=== PATIENT | female | born 1950 | race Caucasian/White ===

== ENCOUNTER 2019-07-12 15:54 | Inpatient (IN) | payer MEDICARE ==
[~2019-07-12] VITALS: Ht 160 cm; Wt 80.7 kg
[2019-07-12] MEDS ORDERED: ONDA8TAB9 PO (16:09)
[2019-07-12] MEDS ORDERED: HYDR25TA6 PO (16:09)
[2019-07-12] MEDS ORDERED: PANT40TA5 PO (16:09)
[2019-07-12] MEDS ORDERED: POTA20TA6 PO (16:09)
[2019-07-12] MEDS ORDERED: LEVO75TA5 PO (16:09)
[2019-07-12] MEDS ORDERED: CYCL-259 PO (16:09)
--- NOTE | 2019-07-12 16:15 | NUR ---
THIS IS A 69 YO F BIB EMS FROM [facility] W/ C/O BLE WEAKNESS X10 DAYS. PT REPORTS NOT BEING ABLE TO WALK ANYMORE. PT REPORTS HER WHOLE BODY FEELS LIKE ITS TINGLING. DENIES CP/SOB/COUGH/RECENT TRAVEL. PT IS CONNECTED TO ALL MONITORING. HYPERTENSIVE, OTHER VS WDL. PT REPORTS NOT TAKING HTN MEDS TODAY. CALL LIGHT IN REACH, SIDE RAILS UP X2. PIV [employer]. MED REC DONE.
--- NOTE | 2019-07-12 16:17 | NUR ---
LAB IN ROOM.
[2019-07-12 16:45] LABS: BASOPHILS # (AUTO) 0.04 x10^3/uL (0-0.1); BASOPHILS % (AUTO) 1 % (0-1); EOSINOPHILS # (AUTO) 0.07 x10^3/uL (0-0.4); EOSINOPHILS % (AUTO) 1 % (1-7); LYMPHOCYTES # (AUTO) 1.57 x10^3/uL (1-3.4); LYMPHOCYTES % (AUTO) 21 % (22-44); MD NO; MEAN CORPUSCULAR HEMOGLOBIN 32.1 pg (27.0-34.8); MEAN CORPUSCULAR HGB CONC 33.1 g/dL (32.4-35.8); MEAN CORPUSCULAR VOLUME 97.2 fL (80-100); MEAN PLATELET VOLUME 8.4 fL (7.4-10.4); MONOCYTES # (AUTO) 0.68 x10^3/uL (0.2-0.8); MONOCYTES % (AUTO) 9 % (2-9); NEUTROPHILS % (AUTO) 69 % (42-75); PLATELET COUNT 243 x10^3/uL (130-400); RED BLOOD COUNT 3.92 x10^6/uL (3.82-5.3); RED CELL DISTRIBUTION WIDTH 15.8 % (9.6-15.2)
[2019-07-12 16:56] LABS: ALANINE AMINOTRANSFERASE 24 U/L (12-78); ALBUMIN 2.4 g/dL (3.4-5.0); ANION GAP 9 mmol/L (5-15); CALCIUM 8.2 mg/dL (8.5-10.1); CHLORIDE 109 mmol/L (98-107); CREATININE 0.89 mg/dL (0.55-1.02)
[2019-07-12] MEDS ORDERED: LIDOCAINE-MPF 1%, 5ML ONE (17:01)
[2019-07-12 17:03] LABS: ALKALINE PHOSPHATASE 129 U/L (45-117); BILIRUBIN,TOTAL 0.4 mg/dL (0.2-1.0); TOTAL PROTEIN 6.4 g/dL (6.4-8.2)
--- NOTE | 2019-07-12 17:06 | NUR ---
PT RESTING ON [employer] W/ CALL LIGHT IN REACH. RESP EVEN AND UNLABORED. NADN. PT SET UP FOR LP.
[2019-07-12 17:24] LABS: HCT (SEDRATE) 38.1 % (34.6-47.8)
--- NOTE | 2019-07-12 17:50 | NUR ---
LP DONE BY KATERINE ALANIS. PT TOLERATED WELL. NOW RESTING ON GURNEY LAYING ON LEFT SIDE. CALL LIGHT IN REACH.
[2019-07-12] MEDS ORDERED: MAGNESIUM SULFATE PMX 4GM/100M 100 ML IV ONE (18:00)
--- NOTE | 2019-07-12 18:11 | NUR ---
IV MAG STARTED. PT RESTING ON [employer] W/ CALL LIGHT IN REACH. HYPERTENSIVE, OTHER VS WDL. DENIES FURTHER NEEDS AT THIS TIME.
--- NOTE | 2019-07-12 18:18 | NUR ---
PT UPDATED ON POC FOR MRI.
--- NOTE | 2019-07-12 18:38 | NUR ---
MED KYLEE FROM PHARMACY.
--- NOTE | 2019-07-12 18:41 | NUR ---
TELEPHONE CALL PLACED TO PHARMACY REGARDING COMPATABILTY OF NS+40K AND MAG. SPOKE W/ SILVANO WHO REPORTS IT IS OKAY TO RUN VIA Y SITE.
--- NOTE | 2019-07-12 18:44 | NUR ---
ADMITTING IN ROOM FOR EVAL.
[2019-07-12 18:54] LABS: CREATINE KINASE, TOTAL 61 U/L (26-192)
[2019-07-12 18:54] LABS: GLUCOSE, CSF 61 mg/dL (40-80)
[2019-07-12] MEDS: NS + 40MEQ KCL 1,000 ML IV SCH (18:57)
[2019-07-12] MEDS ORDERED: LORazepam 2 MG/ML, 1ML ONE (19:11)
--- NOTE | 2019-07-12 19:15 | NUR ---
PT MEDICATED WITH 0.5MG OF ATIVAN PER VERBAL ORDER.
--- NOTE | 2019-07-12 19:16 | NUR ---
IVF STOPPED FOR MRI.
--- NOTE | 2019-07-12 19:16 | NUR ---
PT TO MRI.
[2019-07-12 19:17] LABS: TOTAL PROTEIN,CSF 289 mg/dL (15-45)
--- NOTE | 2019-07-12 19:22 | NUR ---
ATTEMPTED TO CALL REPORT. TIMMY WARREN WILL CALL BACK.
[2019-07-12] MEDS ORDERED: SODIUM CHLORIDE FLUSH 10ML SYR IVF PRN (19:30)
[2019-07-12] MEDS ORDERED: DOCUSATE 100 MG CAPSULE PO PRN (19:30)
[2019-07-12] MEDS ORDERED: ONDANSETRON 2MG/ML, 2ML IVPush PRN (19:30)
--- NOTE | 2019-07-12 19:45 | NUR ---
REPORT GIVEN TO TIMMY WARREN. PT WILL BE READY FOR TRANSFER WHEN SHE RETURNS FROM MRI.
[2019-07-12] MEDS ORDERED: GADOTERATE 7.5 MMOL/15 ML SYR ONE (20:00)
--- NOTE | 2019-07-12 20:40 | NUR ---
PT BACK FROM MRI.
[2019-07-12] MEDS ORDERED: hydrALAzine 20 MG/ML, 1ML ONE (21:22)
[2019-07-12] MEDS: hydrALAzine 20 MG/ML, 1ML IVPush PRN (21:25)
--- NOTE | 2019-07-12 21:30 | NUR ---
BLADDER SCAN 103ML.
--- NOTE | 2019-07-12 21:41 | NUR ---
PT BP 201/97. MEDICATED PER EMAR. Addendum: 07/12/19 at 2141 by [email or web address] 2116: PT BP 201/97. MEDICATED PER EMAR.
[2019-07-12 22:00] VITALS: BP 138/84
[2019-07-13 01:50] VITALS: BP 135/61
[2019-07-13 03:03] LABS: CLOSTRIDIUM DIFFICILE ANTIGEN NEGATIVE; CLOSTRIDIUM DIFFICILE TOXIN NEGATIVE (Negative)
[2019-07-13 06:01] LABS: BASOPHILS # (AUTO) 0.04 x10^3/uL (0-0.1); BASOPHILS % (AUTO) 0 % (0-1); EOSINOPHILS # (AUTO) 0.07 x10^3/uL (0-0.4); EOSINOPHILS % (AUTO) 1 % (1-7); LYMPHOCYTES # (AUTO) 1.36 x10^3/uL (1-3.4); LYMPHOCYTES % (AUTO) 16 % (22-44); MD NO; MEAN CORPUSCULAR HGB CONC 32.6 g/dL (32.4-35.8); MEAN CORPUSCULAR VOLUME 98.3 fL (80-100); MEAN PLATELET VOLUME 8.6 fL (7.4-10.4); MONOCYTES # (AUTO) 0.62 x10^3/uL (0.2-0.8); MONOCYTES % (AUTO) 7 % (2-9); NEUTROPHILS # (AUTO) 6.41 x10^3/uL (1.8-6.8); NEUTROPHILS % (AUTO) 76 % (42-75); PLATELET COUNT 242 x10^3/uL (130-400); RED BLOOD COUNT 3.87 x10^6/uL (3.82-5.3); RED CELL DISTRIBUTION WIDTH 16.3 % (9.6-15.2)
[2019-07-13 06:09] LABS: ANION GAP 8 mmol/L (5-15); CALCIUM 8.3 mg/dL (8.5-10.1); CHLORIDE 111 mmol/L (98-107); CREATININE 0.79 mg/dL (0.55-1.02)
[2019-07-13] MEDS: ACETAMINOPHEN 325 MG TABLET PO PRN (06:10)
[2019-07-13 06:20] VITALS: BP 194/80
[2019-07-13] MEDS: hydrALAzine 20 MG/ML, 1ML IVPush PRN ×2 (06:28→13:45)
[2019-07-13] MEDS: NS + 40MEQ KCL 1,000 ML IV SCH (06:29)
[2019-07-13 13:55] VITALS: BP 172/76
[2019-07-13] MEDS: GABAPENTIN 100 MG CAPSULE PO SCH ×2 (14:04→20:49)
[2019-07-13 14:05] VITALS: BP 118/45
[2019-07-13] MEDS: LABETALOL 100 MG TABLET PO SCH (17:21)
[2019-07-13] MEDS ORDERED: LORazepam 2 MG/ML, 1ML IV PRN ×4 (18:30)
[2019-07-13 19:37] VITALS: BP 115/42
[2019-07-13] MEDS: THIAMINE 100 MG in SODIUM CHLORIDE 0.9% 50 ML IV SCH (20:48)
[2019-07-13 23:33] VITALS: BP 121/75
[2019-07-14 02:22] VITALS: BP 116/72
[2019-07-14] MEDS: OMEPRAZOLE 20 MG CAPSULE.DR PO SCH (05:30)
[2019-07-14] MEDS: LABETALOL 100 MG TABLET PO SCH ×2 (05:30→18:28)
[2019-07-14 06:15] LABS: BASOPHILS # (AUTO) 0.03 x10^3/uL (0-0.1); BASOPHILS % (AUTO) 1 % (0-1); EOSINOPHILS # (AUTO) 0.08 x10^3/uL (0-0.4); EOSINOPHILS % (AUTO) 1 % (1-7); LYMPHOCYTES % (AUTO) 25 % (22-44); MD NO; MEAN CORPUSCULAR HEMOGLOBIN 31.9 pg (27.0-34.8); MEAN CORPUSCULAR HGB CONC 32.2 g/dL (32.4-35.8); MEAN CORPUSCULAR VOLUME 98.9 fL (80-100); MEAN PLATELET VOLUME 8.7 fL (7.4-10.4); MONOCYTES # (AUTO) 0.53 x10^3/uL (0.2-0.8); MONOCYTES % (AUTO) 10 % (2-9); NEUTROPHILS # (AUTO) 3.55 x10^3/uL (1.8-6.8); NEUTROPHILS % (AUTO) 63 % (42-75); PLATELET COUNT 218 x10^3/uL (130-400); RED BLOOD COUNT 3.52 x10^6/uL (3.82-5.3); RED CELL DISTRIBUTION WIDTH 15.9 % (9.6-15.2)
[2019-07-14 06:20] LABS: ANION GAP 10 mmol/L (5-15); CALCIUM 8.2 mg/dL (8.5-10.1); CHLORIDE 113 mmol/L (98-107)
[2019-07-14 06:22] LABS: CREATININE 0.86 mg/dL (0.55-1.02)
[2019-07-14 08:20] VITALS: BP 111/67
[2019-07-14] MEDS: FOLIC ACID 1 MG TABLET PO SCH (08:44)
[2019-07-14] MEDS: LEVOTHYROXINE 75 MCG TABLET PO SCH (08:44)
[2019-07-14] MEDS: GABAPENTIN 100 MG CAPSULE PO SCH ×2 (08:44→20:31)
[2019-07-14] MEDS ORDERED: DEXAMETHASONE 10 MG in SODIUM CHLORIDE 0.9% 50 ML IV SCH (10:00)
[2019-07-14 14:54] VITALS: BP 121/70
[2019-07-14 18:26] VITALS: BP 154/83
[2019-07-14] MEDS: THIAMINE 100 MG in SODIUM CHLORIDE 0.9% 50 ML IV SCH (18:54)
[2019-07-15 01:22] VITALS: BP 127/76
[2019-07-15] MEDS: LABETALOL 100 MG TABLET PO SCH ×2 (05:42→18:50)
[2019-07-15] MEDS: OMEPRAZOLE 20 MG CAPSULE.DR PO SCH (05:42)
[2019-07-15 06:43] VITALS: BP 140/83
[2019-07-15] MEDS ORDERED: LIDOCAINE-MPF 1%, 5ML ONE (08:31)
[2019-07-15 09:51] LABS: GLUCOSE, CSF 53 mg/dL (40-80); TOTAL PROTEIN,CSF 72 mg/dL (15-45)
[2019-07-15] MEDS: GABAPENTIN 100 MG CAPSULE PO SCH ×2 (10:13→20:42)
[2019-07-15] MEDS: FOLIC ACID 1 MG TABLET PO SCH (10:13)
[2019-07-15] MEDS: LEVOTHYROXINE 75 MCG TABLET PO SCH (10:13)
[2019-07-15 10:21] LABS: ANION GAP 7 mmol/L (5-15); CALCIUM 8.5 mg/dL (8.5-10.1); CHLORIDE 112 mmol/L (98-107)
[2019-07-15 10:23] LABS: MEAN CORPUSCULAR HEMOGLOBIN 31.9 pg (27.0-34.8); MEAN CORPUSCULAR VOLUME 99.7 fL (80-100); MEAN PLATELET VOLUME 8.2 fL (7.4-10.4); PLATELET COUNT 204 x10^3/uL (130-400); RED CELL DISTRIBUTION WIDTH 15.9 % (9.6-15.2)
[2019-07-15 11:11] LABS: BASOPHILS # (AUTO) 0.03 x10^3/uL (0-0.1); BASOPHILS % (AUTO) 1 % (0-1); EOSINOPHILS # (AUTO) 0.07 x10^3/uL (0-0.4); EOSINOPHILS % (AUTO) 1 % (1-7); LYMPHOCYTES # (AUTO) 1.06 x10^3/uL (1-3.4); LYMPHOCYTES % (AUTO) 19 % (22-44); MD SCAN; MONOCYTES # (AUTO) 0.49 x10^3/uL (0.2-0.8); MONOCYTES % (AUTO) 9 % (2-9); NEUTROPHILS # (AUTO) 3.84 x10^3/uL (1.8-6.8); NEUTROPHILS % (AUTO) 70 % (42-75)
[2019-07-15 13:00] VITALS: BP 122/75
[2019-07-15 13:15] VITALS: BP 93/53
[2019-07-15 18:49] VITALS: BP 126/60
[2019-07-15] MEDS: THIAMINE 100MG TABLET PO SCH (18:50)
[2019-07-16 01:19] VITALS: BP 133/65
[2019-07-16] MEDS: OMEPRAZOLE 20 MG CAPSULE.DR PO SCH (05:03)
[2019-07-16] MEDS: LABETALOL 100 MG TABLET PO SCH ×2 (05:03→18:36)
[2019-07-16 06:56] LABS: BASOPHILS # (AUTO) 0.01 x10^3/uL (0-0.1); BASOPHILS % (AUTO) 0 % (0-1); EOSINOPHILS # (AUTO) 0.13 x10^3/uL (0-0.4); EOSINOPHILS % (AUTO) 2 % (1-7); LYMPHOCYTES # (AUTO) 0.96 x10^3/uL (1-3.4); LYMPHOCYTES % (AUTO) 15 % (22-44); MD NO; MEAN CORPUSCULAR HEMOGLOBIN 31.6 pg (27.0-34.8); MEAN CORPUSCULAR VOLUME 98.9 fL (80-100); MEAN PLATELET VOLUME 8.6 fL (7.4-10.4); MONOCYTES # (AUTO) 0.43 x10^3/uL (0.2-0.8); MONOCYTES % (AUTO) 7 % (2-9); NEUTROPHILS # (AUTO) 4.67 x10^3/uL (1.8-6.8); NEUTROPHILS % (AUTO) 75 % (42-75); PLATELET COUNT 213 x10^3/uL (130-400); RED BLOOD COUNT 3.43 x10^6/uL (3.82-5.3); RED CELL DISTRIBUTION WIDTH 16.1 % (9.6-15.2)
[2019-07-16 07:02] LABS: ANION GAP 6 mmol/L (5-15); CALCIUM 8.5 mg/dL (8.5-10.1); CHLORIDE 113 mmol/L (98-107)
[2019-07-16] MEDS: LEVOTHYROXINE 75 MCG TABLET PO SCH (08:04)
[2019-07-16] MEDS: FOLIC ACID 1 MG TABLET PO SCH (08:04)
[2019-07-16] MEDS: GABAPENTIN 100 MG CAPSULE PO SCH ×2 (08:04→21:20)
[2019-07-16 08:11] VITALS: BP 123/76
[2019-07-16 14:04] VITALS: BP 145/81
[2019-07-16 18:35] VITALS: BP 149/83
[2019-07-16 19:03] VITALS: BP 130/74
[2019-07-16] MEDS: THIAMINE 100MG TABLET PO SCH (21:20)
[2019-07-17 01:48] VITALS: BP 128/74
[2019-07-17 05:35] VITALS: BP 175/95
[2019-07-17] MEDS: LABETALOL 100 MG TABLET PO SCH (05:37)
[2019-07-17] MEDS: OMEPRAZOLE 20 MG CAPSULE.DR PO SCH (05:37)
[2019-07-17 06:21] LABS: BASOPHILS # (AUTO) 0.03 x10^3/uL (0-0.1); BASOPHILS % (AUTO) 0 % (0-1); EOSINOPHILS # (AUTO) 0.17 x10^3/uL (0-0.4); EOSINOPHILS % (AUTO) 3 % (1-7); LYMPHOCYTES # (AUTO) 0.89 x10^3/uL (1-3.4); LYMPHOCYTES % (AUTO) 15 % (22-44); MD NO; MEAN CORPUSCULAR HEMOGLOBIN 32.1 pg (27.0-34.8); MEAN CORPUSCULAR HGB CONC 32.4 g/dL (32.4-35.8); MEAN CORPUSCULAR VOLUME 99.2 fL (80-100); MONOCYTES # (AUTO) 0.58 x10^3/uL (0.2-0.8); MONOCYTES % (AUTO) 10 % (2-9); NEUTROPHILS % (AUTO) 71 % (42-75); PLATELET COUNT 221 x10^3/uL (130-400); RED BLOOD COUNT 3.49 x10^6/uL (3.82-5.3)
[2019-07-17 06:35] LABS: ANION GAP 6 mmol/L (5-15); CALCIUM 8.9 mg/dL (8.5-10.1); CHLORIDE 113 mmol/L (98-107); CREATININE 0.78 mg/dL (0.55-1.02)
[2019-07-17 07:25] VITALS: BP 97/50
[2019-07-17] MEDS: GABAPENTIN 100 MG CAPSULE PO SCH (08:11)
[2019-07-17] MEDS: LEVOTHYROXINE 75 MCG TABLET PO SCH (08:11)
[2019-07-17] MEDS: FOLIC ACID 1 MG TABLET PO SCH (08:11)
[2019-07-17] MEDS ORDERED: ACET325T26 PO (10:51)
[2019-07-17] MEDS ORDERED: LABE100T6 PO (10:51)
[2019-07-17] MEDS ORDERED: FOLI-17 PO (10:51)
[2019-07-17] MEDS ORDERED: OMEP-110 PO (10:51)
[2019-07-17] MEDS ORDERED: GABA-826 PO (10:51)
[2019-07-17] MEDS ORDERED: THIA100T67 PO (10:51)
[2019-07-17 12:01] VITALS: BP 100/62
[2019-07-17] MEDS ORDERED: MAGNESIUM SULFATE PMX 2GM/50ML 50 ML IV ONE (14:30)
[2019-07-17] MEDS: ACETAMINOPHEN 325 MG TABLET PO PRN (14:55)
== END 2019-07-17 16:56 | DRG 948 ==
LOC: ED 17:12 → EDIP 18:40 → 3WST 21:57 → 4WST 07-13 23:10
PROVIDERS: ADMIT Family Medicine; ATTEND Hospitalist
PROC: 009U3ZX Drainage of Spinal Canal, Percutaneous Approach, Diagnostic (ICD-10-PCS; principal; 2019-07-12)
DX: R53.1 Weakness (principal); M48.061 Spinal stenosis, lumbar region without neurogenic claudication; E03.9 Hypothyroidism, unspecified; E88.2 Lipomatosis, not elsewhere classified; F10.20 Alcohol dependence, uncomplicated; G60.3 Idiopathic progressive neuropathy; G62.1 Alcoholic polyneuropathy; I12.9 Hypertensive chronic kidney disease with stage 1 through stage 4 chronic kidney disease, or unspecified chronic kidney disease; K44.9 Diaphragmatic hernia without obstruction or gangrene; N18.3 Chronic kidney disease, stage 3 (moderate); W18.30XA Fall on same level, unspecified, initial encounter; Y93.89 Activity, other specified; Y92.89 Other specified places as the place of occurrence of the external cause; Y99.8 Other external cause status; Z87.891 Personal history of nicotine dependence; Z82.49 Family history of ischemic heart disease and other diseases of the circulatory system; Y90.9 Presence of alcohol in blood, level not specified; Z20.828 Contact with and (suspected) exposure to other viral communicable diseases
CPT/HCPCS: 36415; 62270; 62328; 71045; 72156; 72158; 80048; 80053; 82550; 82595; 82607; 82945; 83036; 83605; 83615; 83735; 84100; 84157; 84443; 84446; 85025; 85379; 85651; 86038; 86140; 87040; 87070; 87205; 87252; 87324; 89051; 93005; 96365; 96366; G0378; J3411; A9575; J0360; J3475; J3480; U0001